=== PATIENT | female | born 1950 | race African-American/Black ===

== ENCOUNTER 2019-05-27 18:12 | Emergency (ER) | payer MEDICAID ==
[~2019-05-27] VITALS: Ht 165.1 cm; Wt 77.0 kg
[~2019-05-27 18:12] MED LIST: AMLO5TAB4 PO; ATOR10TA PO; DIPH25CA83 PO; FURO-151 PO; LISI2.5T47 PO; POTA20TA82 PO; flexeril PO
[2019-05-27] MEDS ORDERED: KETOROLAC 60MG/2ML VIAL IM ONE (19:15)
[2019-05-27 19:43] LABS: BASOPHILS % 0.5 % (0.0-2.0); EOSINOPHILS % 7.3 % (0.0-5.0); HEMATOCRIT. 38.8 % (36.0-48.0); HEMOGLOBIN. 13.4 g/dL (12.0-16.0); LYMPHOCYTES % 20.2 % (20.0-50.0); MEAN CORPUSCULAR VOLUME 86.7 fL (81.0-99.0); MEAN PLATELET VOLUME 7.5 fl (7.4-10.4); PLATELET 379 x1000/uL (130-400); RED BLOOD CELL COUNT 4.47 mill/uL (4.2-5.4); RED CELL DISTRIBUTION WIDTH 14.1 % (11.6-14.6)
[2019-05-27 19:44] LABS: CHLORIDE 112 mEq/L (98-107)
[2019-05-27] MEDS ORDERED: ONDANSETRON HCL 4MG/2ML INJ IV STA (20:21)
[2019-05-27] MEDS ORDERED: MORPHINE SULFATE 4 MG/ML CPJ (NOT FOR IM USE) IV STA (20:21)
[2019-05-27 21:00] LABS: CREATINE KINASE 35 IU/L (26-192)
[2019-05-28] VITALS: BP 110/65
== END 2019-05-28 01:07 | disposition short-term general hospital (02) ==
LOC: ER 18:12 → CANBEDREQ 05-28 01:35
DX: M54.9 Dorsalgia, unspecified (principal); N28.9 Disorder of kidney and ureter, unspecified; E86.0 Dehydration; I11.9 Hypertensive heart disease without heart failure; R06.02 Shortness of breath; Z79.899 Other long term (current) drug therapy; Z86.73 Personal history of transient ischemic attack (TIA), and cerebral infarction without residual deficits
CPT/HCPCS: 36415; 71045; 72131; 80053; 82550; 83880; 84484; 85025; 93005; 96372; 96374; 96375; 99285; J1885; J2270; J2405